=== PATIENT | male | born 1970 | race Two or more races ===

== ENCOUNTER 2017-04-10 06:54 | Emergency (ER) | payer MEDICAID ==
[~2017-04-10] VITALS: Ht 167.6 cm; Wt 66.7 kg
[2017-04-10 08:15] VITALS: BP 130/4
--- NOTE | 2017-04-10 08:15 | NUR ---
[id number], CAME TO ER C/O FOR INGUINAL HERNIA. SKIN IS WARM AND DRY. RESP IS EVEN AND UNLABORED WITH NAD NOTED. DR HARVEY AT BS FOR EVAL.
== END 2017-04-10 08:43 | disposition home or self-care (01) ==
LOC: ER 07:01
DX: K40.90 Unilateral inguinal hernia, without obstruction or gangrene, not specified as recurrent (principal); E11.9 Type 2 diabetes mellitus without complications
CPT/HCPCS: 99282; A4606; Z7610